=== PATIENT | male | born 1970 | race Caucasian/White ===

== ENCOUNTER 2018-01-20 17:52 | Emergency (ER) | payer MEDICAID ==
[~2018-01-20] VITALS: Ht 172.7 cm; Wt 83.4 kg
[2018-01-20 17:58] VITALS: BP 150/96
[2018-01-20] MEDS ORDERED: FLUORESCEIN OPHTHALMIC 1 MG STRIP ONE (18:06)
[2018-01-20] MEDS ORDERED: PROPARACAINE OPHTH 0.5%, 15ML ONE (18:06)
[2018-01-20] MEDS ORDERED: EYE WASH SOLUTION 120ML ONE (18:22)
[2018-01-20] MEDS ORDERED: HYDROcodone/APAP 5/325 TABLET ONE (19:06)
[2018-01-20] MEDS ORDERED: CETI10CA PO (19:14)
[2018-01-20] MEDS ORDERED: HYDROcodone/APAP 5/325 TABLET PO ONE (19:30)
[2018-01-20] MEDS ORDERED: OXYcodone/APAP 5/325MG TABLET ONE (21:17)
[2018-01-20] MEDS ORDERED: DIAZEPAM 5 MG TABLET ONE (21:18)
[2018-01-20] MEDS ORDERED: OXYcodone/APAP 5/325MG TABLET PO ONE (21:30)
[2018-01-20] MEDS ORDERED: DIAZEPAM 5 MG TABLET PO ONE (21:30)
== END 2018-01-20 21:34 | disposition home or self-care (01) ==
LOC: ED 21:19
DX: T15.02XA Foreign body in cornea, left eye, initial encounter (principal); W45.8XXA Other foreign body or object entering through skin, initial encounter; Y93.89 Activity, other specified; Y99.8 Other external cause status; Y92.89 Other specified places as the place of occurrence of the external cause
CPT/HCPCS: 65222; 70480; 99284